=== PATIENT | male | born 1965 | race Caucasian/White ===

== ENCOUNTER 2020-12-15 11:57 | Outpatient (REF) | payer OTHER, SELFPAY ==
[2020-12-15 12:28] LABS: MANUAL DIFF FLAG NO
[2020-12-15 12:36] LABS: Basophils Absolute Auto 0.1 X10*3/uL (0.0-0.2); Basophils Percent Auto 0.8 % (0-2); Eosinophils Absolute Auto 0.1 X10*3/uL (0.0-0.4); Eosinophils Percent Auto 2.2 % (0-4); Hematocrit 45.4 % (42-52); Hemoglobin 14.9 g/dl (14.0-18.0); Imm Gran Abs Auto 0.05 X10*3/uL (0.00-0.03); Imm Gran Pct Auto 0.8 % (0.0-0.4); Lymphocytes Absolute Auto 1.8 X10*3/uL (1.2-4.9); Mean Corpuscular HGB Conc 32.8 g/dl (31.0-36.0); Mean Corpuscular Hemoglobin 27.9 pg (27.0-33.0); Mean Platelet Volume 9.5 fL (9.4-12.4); Monocytes Absolute Auto 0.8 X10*3/uL (0.1-1.2); Monocytes Percent Auto 11.7 % (2-11); Neutrophils Absolute Auto 3.7 X10*3/uL (2.0-8.3); Neutrophils Percent Auto 57.5 % (45-73); Platelet Count 307 X10*3/uL (160-400); Red Blood Count 5.34 X10*6/uL (4.60-5.80); Red Cell Distribution Width 13.9 % (11.0-16.0); White Blood Count 6.5 X10*3/uL (4.8-10.8)
[2020-12-15 12:51] LABS: Glucose Urine UA NEG (NEG); Leukocyte Esterase Urine NEG (NEG); Nitrite Urine NEG (NEG); PH 5.5 (5.0-8.0); Specific Gravity - Urine >= 1.030 (1.005-1.025); Urine Blood NEG (NEG); Urine Ketones NEG (NEG); Urine Protein NEG (NEG-TRACE)
[2020-12-15 12:55] LABS: Appearance Urine HAZY; Color Urine YELLOW
[2020-12-15 13:21] LABS: Alanine Aminotransferase 30 U/L (0-40); Albumin Level 4.3 g/dL (3.5-5.0); Alkaline Phosphatase 74 U/L (39-117); Anion Gap 11 (12-20); Aspartate Amino Transferase 18 U/L (5-37); Bilirubin Total 0.9 mg/dL (0.0-1.0); Blood Urea Nitrogen 16 mg/dL (9-16); Carbon Dioxide 27 mmol/L (22-29); Chloride 105 mmol/L (96-108); Cholesterol 219 mg/dL; Estimated Glomerular Filt Rate > 60; Glucose Fasting 92 mg/dL (60-99); HDL Cholesterol 50 mg/dL; LDL Cholesterol Calculated 132 mg/dl; Potassium 4.2 mmol/L (3.3-5.1); Sodium 139 mmol/L (135-145); Total Protein 7.4 g/dL (6.5-8.0); Triglycerides 189 mg/dL
[2020-12-15 13:41] LABS: Estimated Average Glucose 114 mg/dL; Hemoglobin A1C 150.9873 umol/L; Hemoglobin A1c % 5.6 %
[2020-12-15 13:42] LABS: Prostate Specific Antigen 3.21 ng/mL (<0.05-4.0); TSH reflex Free T4 1.79 uIU/mL (0.32-4.0)
== END 2020-12-15 11:58 | disposition home or self-care (01) ==
LOC: HO.LAB 11:57
PROVIDERS: PCP Internal Medicine; Visit Provider Internal Medicine
DX: Z00.00 Encounter for general adult medical examination without abnormal findings (principal); R68.2 Dry mouth, unspecified; K21.9 Gastro-esophageal reflux disease without esophagitis; K59.00 Constipation, unspecified; E66.9 Obesity, unspecified; R03.0 Elevated blood-pressure reading, without diagnosis of hypertension; R35.0 Frequency of micturition; Z20.822 Contact with and (suspected) exposure to COVID-19; Z12.5 Encounter for screening for malignant neoplasm of prostate
CPT/HCPCS: 36415; 80053; 80061; 81003; 83036; 84153; 84443; 85025; U0003; U0005

== ENCOUNTER 2021-04-08 07:24 | Emergency (ER) | payer OTHER, SELFPAY ==
[2021-04-08 07:54] VITALS: BP 140/85; PULSE 88; RESP 18; TEMP 36.7; O2SAT 98; BMI 25.0
--- NOTE | 2021-04-08 08:56 | ED_ITS ---
HPI - Skin/Abscess/Foreign Bdy General Chief complaint: Skin/Abscess/Foreign Body Stated complaint: BOIL Time Seen by Provider: 04/08/21 08:30 Source: patient and family ( mother at bedside) Mode of arrival: ambulatory Limitations: no limitations History of Present Illness complaint: abscess/boil Onset (ago): day(s) ( few days worse today) Location: RUE ( left axillary) Severity: moderate Quality: aching, sharp and constant Pain Consistency: constant Relieving factors: none Exacerbating factors: palpation and movement ( of the left arm /shoulder) Context: none Associated symptoms: shortness of breath Treatments prior to arrival: none Related Data Home Medications Medication Instructions Recorded Confirmed calcium polycarbophil 625 mg tablet 1,250 mg PO BID 08/06/20 03/16/21 linaclotide 145 mcg capsule 145 mcg PO QAM 08/06/20 03/16/21 Previous Rx's Medication Instructions Recorded pantoprazole 40 mg tablet,delayed 40 mg PO DAILY 90 Days #90 tab 12/14/20 release acetaminophen [Tylenol Extra 1,000 mg PO QID PRN #14 tab 04/08/21 Strength] cephalexin 500 mg PO BID 10 Days #20 cap 04/08/21 doxycycline monohydrate 100 mg PO BID 10 Days #20 cap 04/08/21 ibuprofen 800 mg PO Q8H PRN #14 tab 04/08/21 oxycodone 5 mg PO BID PRN #10 tab 04/08/21 Allergies Allergy/AdvReac Type Severity Reaction Status Date / Time penicillin G [PENICILLIN G] Allergy Unknown UNKNOWN Verified 03/16/21 17:16 penicillin V Allergy Unknown unknown Verified 03/16/21 17:16 Review of Systems Review of Systems: Constitutional : No Fever, No Chills, Cardiovascular : No Chest Pain, No SOB Respiratory : No Dyspnea Gastrointestinal : No abdominal pain Musculoskeletal : No Joint Swelling Skin : positive cellulitis /skin abscess, No skin laceration, No Foreign bodies, No rash Neuro : No Weakness, No Numbness/tingling Psych : No SI/HI/thoughts of self injury Yes all other systems are reviewed and are negative [facility] Past Medical History Attestation statement: The following information was validated with the patient. Medical History Dry mouth Elevated blood pressure reading Elevated PSA Exposure to COVID-19 virus Obesity (BMI 30-39.9) Pure hypercholesterolemia Urinary frequency Surgical History Hx of colonoscopy Family History Family History Father Overdose of drug Mother HTN (hypertension) Anxiety Family/Other Prostate cancer Social History Social History Household Members: Family Household Members Other:: mother Housing: Apartment Alcohol intake: current Alcohol intake frequency: holidays/special occasions only Patient Tobacco Use Status: Never used Tobacco Second Hand Smoke Exposure: Yes Advance Directives: No Advance Directives Information Provided: No service: No Current occupational status: disabled Physical Exam Vital Signs: Vital Signs: Last Vital Signs Temp 98.1 F 04/08/21 07:54 Pulse 88 04/08/21 07:54 Resp 18 04/08/21 07:54 BP 140/85 H 04/08/21 07:54 Pulse Ox 98 04/08/21 07:54 Body Mass Index 25.0 vital signs have been reviewed as normal and appeared to be correct. Blood pressure normal. Heart rate normal. Respiration rate normal. Temperature normal. Oxygen saturation normal. Appearance: Alert. Oriented X3. No acute distress. Head: Normal external exam. Normocephalic. Atraumatic. Eyes: PERRLA. EOMI. Conjunctiva and sclera normal. Eyelids normal. ENT: Pharynx normal. Uvula midline. Moist mucous membranes. Neck: Normal inspection. Neck supple. FROM. No adenopathy. No meningeal signs. CVS: Normal heart rate and rhythm. Respiratory: No respiratory distress. Painless inspiration. Back: Full range of motion noted. Skin: Skin warm and dry. Normal skin color. Normal skin turgor. patient with small abscess to left axillary with mild surrounding erythema / fluctuance. No induration /streaking or foreign bodies noted.No rashes/lesions/lacerations noted. Extremities: Extremities exhibit normal range of motion. Extremities nontender. Neuro: Oriented X 3. No motor deficit. No sensory deficit. Reflexes normal. Normal steady gait. No focal neuro deficits noted. Vascular: + radial pulses. Normal cap refill. No cyanosis noted to upper extremity nails. Course Course Course Narrative: Patient now status post I&D of abscess to left axillary. No packing placed. Patient tolerated procedure well. No complications. Will DC home antibiotics and symptomatic treatment only instructions to return if any new or worsening symptoms to follow up with primary care provider. Patient understands agrees with this plan. Procedures Abscess I/D Site: upper extremity ( Left axillary) Side (if applicable): left Local Anesthetic: lidocaine 1% Amount of anesthesia used (mL): 5 Technique: needle aspiration Amount of fluid expressed (mL): 4 Sent for culture/gram staining?: No Irrigation: Yes Packing used?: none Complications: other ( no complications) MDM - Skin/Abscess/Foreign Bdy Medical Records Attestation: I reviewed the patient's medical records. Discharge Plan Discharge Clinical Impression: Cellulitis, Abscess of skin or subcutaneous tissue Patient Disposition: Home, Self-Care Instructions: Cellulitis (ED), Abscess (ED) Prescriptions: New ibuprofen 800 mg tablet 800 mg PO Q8H PRN (Reason: pain) Qty: 14 RF: 0 acetaminophen [Tylenol Extra Strength] 500 mg tablet 1,000 mg PO QID PRN (Reason: fever or pain) Qty: 14 RF: 0 doxycycline monohydrate 100 mg capsule 100 mg PO BID 10 Days Qty: 20 RF: 0 cephalexin 500 mg capsule 500 mg PO BID 10 Days Qty: 20 RF: 0 oxycodone 5 mg tablet 5 mg PO BID PRN (Reason: pain) Qty: 10 RF: 0 No Action pantoprazole 40 mg tablet,delayed release (DR/EC) 40 mg PO DAILY 90 Days Qty: 90 RF: 1 Linzess 145 mcg capsule 145 mcg PO QAM RF: 0 calcium polycarbophil [Fiber Laxative (ca polycarbo)] 625 mg tablet 1,250 mg PO BID RF: 0 Referrals: Physician,Unknown [Primary Care Provider] - 2 days (your pcp) Print Language: Mohawk
[2021-04-08] MEDS: Ibuprofen 800 MG TABLET PO (09:06)
[2021-04-08] MEDS: oxyCODONE HCl Immed Release 5 MG TABLET PO (09:06)
[2021-04-08] MEDS: cephALEXin 500 MG CAPSULE PO (09:06)
[2021-04-08] MEDS: Lidocaine HCl 1 % MPF 5 ML VIAL SUBCUT (09:07)
== END 2021-04-08 09:51 | disposition home or self-care (01) ==
PROVIDERS: Emergency Provider Emergency Medicine Emergency Medical Services
DX: L02.412 Cutaneous abscess of left axilla (principal); L03.112 Cellulitis of left axilla
CPT/HCPCS: 10160; 99283; 99284

== ENCOUNTER 2021-06-02 07:18 | Outpatient (REF) | payer OTHER, SELFPAY ==
[2021-06-02 09:02] LABS: MANUAL DIFF FLAG NO
[2021-06-02 09:06] LABS: Basophils Absolute Auto 0.1 X10*3/uL (0.0-0.2); Eosinophils Absolute Auto 0.1 X10*3/uL (0.0-0.4); Eosinophils Percent Auto 1.8 % (0-4); Hematocrit 46.2 % (42-52); Imm Gran Abs Auto 0.03 X10*3/uL (0.00-0.03); Imm Gran Pct Auto 0.5 % (0.0-0.4); Lymphocytes Absolute Auto 1.7 X10*3/uL (1.2-4.9); Mean Corpuscular HGB Conc 32.5 g/dl (31.0-36.0); Mean Corpuscular Hemoglobin 27.5 pg (27.0-33.0); Mean Corpuscular Volume 84.6 fL (80-98); Monocytes Absolute Auto 0.7 X10*3/uL (0.1-1.2); Monocytes Percent Auto 11.5 % (2-11); Neutrophils Absolute Auto 3.7 X10*3/uL (2.0-8.3); Neutrophils Percent Auto 58.2 % (45-73); Platelet Count 335 X10*3/uL (160-400); Red Blood Count 5.46 X10*6/uL (4.60-5.80); Red Cell Distribution Width 14.1 % (11.0-16.0); White Blood Count 6.3 X10*3/uL (4.8-10.8)
[2021-06-02 09:45] LABS: Alanine Aminotransferase 23 U/L (0-40); Albumin Level 4.1 g/dL (3.5-5.0); Alkaline Phosphatase 78 U/L (39-117); Anion Gap 12 (12-20); Aspartate Amino Transferase 18 U/L (5-37); Bilirubin Total 0.8 mg/dL (0.0-1.0); Blood Urea Nitrogen 13 mg/dL (9-16); Calcium 8.8 mg/dL (8.4-10.2); Carbon Dioxide 24 mmol/L (22-29); Chloride 107 mmol/L (96-108); Estimated Glomerular Filt Rate > 60; Glucose Random 103 mg/dL (60-115); Sodium 139 mmol/L (135-145); Total Protein 7.3 g/dL (6.5-8.0)
== END 2021-06-02 07:19 | disposition home or self-care (01) ==
LOC: HO.LAB 07:18
PROVIDERS: PCP Internal Medicine; Visit Provider Nurse Practitioner Family
DX: R21 Rash and other nonspecific skin eruption (principal)
CPT/HCPCS: 36415; 80053; 85025

== ENCOUNTER 2021-11-03 09:57 | Outpatient (REF) | payer OTHER, SELFPAY ==
[2021-11-03 10:20] LABS: MANUAL DIFF FLAG NO
[2021-11-03 10:38] LABS: Basophils Absolute Auto 0.1 X10*3/uL (0.0-0.2); Basophils Percent Auto 0.7 % (0-2); Eosinophils Absolute Auto 0.1 X10*3/uL (0.0-0.4); Eosinophils Percent Auto 1.4 % (0-4); Hematocrit 48.1 % (42.0-52.0); Hemoglobin 15.7 g/dl (14.0-18.0); Imm Gran Abs Auto 0.07 X10*3/uL (0.00-0.03); Lymphocytes Absolute Auto 1.5 X10*3/uL (1.2-4.9); Lymphocytes Percent Auto 21.9 % (20-40); Mean Corpuscular HGB Conc 32.6 g/dl (31.0-36.0); Mean Corpuscular Hemoglobin 27.6 pg (27.0-33.0); Mean Corpuscular Volume 84.5 fL (80.0-98.0); Mean Platelet Volume 9.7 fL (9.4-12.4); Monocytes Absolute Auto 0.8 X10*3/uL (0.1-1.2); Neutrophils Absolute Auto 4.5 x10*3/uL (2.0-8.3); Platelet Count 330 X10*3/uL (160-400); Red Blood Count 5.69 X10*6/uL (4.60-5.80); Red Cell Distribution Width 13.6 % (11.0-16.0)
[2021-11-03 11:07] LABS: Alanine Aminotransferase 34 U/L (0-40); Albumin Level 4.4 g/dL (3.5-5.0); Alkaline Phosphatase 80 U/L (39-117); Anion Gap 14 (12-20); Aspartate Amino Transferase 22 U/L (5-37); Bilirubin Total 0.9 mg/dL (0.0-1.0); Blood Urea Nitrogen 15 mg/dL (9-16); Calcium 9.7 mg/dL (8.4-10.2); Carbon Dioxide 25 mmol/L (22-29); Chloride 105 mmol/L (96-108); Cholesterol 242 mg/dL; Estimated Glomerular Filt Rate 60; Glucose Fasting 98 mg/dL (60-99); HDL Cholesterol 42 mg/dL; LDL Cholesterol Calculated 160 mg/dl; Potassium 4.4 mmol/L (3.3-5.1); Sodium 140 mmol/L (135-145); Total Protein 7.9 g/dL (6.5-8.0); Triglycerides 204 mg/dL
== END 2021-11-03 09:58 | disposition home or self-care (01) ==
LOC: HO.LAB 09:57
PROVIDERS: PCP Internal Medicine; Visit Provider Internal Medicine
DX: I10 Essential (primary) hypertension (principal); E78.00 Pure hypercholesterolemia, unspecified
CPT/HCPCS: 36415; 80053; 80061; 85025

== ENCOUNTER 2025-07-14 12:20 | Outpatient (AMB) | payer OTHER, SELFPAY ==
[2025-07-14 13:13] VITALS: BP 132/100; PULSE 73; RESP 18; O2SAT 97; BMI 33.0
--- NOTE | 2025-07-14 13:13 | A.OFFPC_ITS ---
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 Accompanied by: Self / Same As Patient Allergies penicillin G (PENICILLIN G) Allergy (Unknown, Verified 07/14/25 13:42) UNKNOWN penicillin V Allergy (Unknown, Verified 07/14/25 13:42) unknown Medication List - Last Reconciled 07/14/25 by Tee Sexton MD calcium polycarbophil (Fiber Laxative (calcium polycarbophil)) 1,250 mg PO BID ibuprofen 800 mg PO Q8H PRN linaclotide (Linzess) 145 mcg PO QAM 90 days pantoprazole 40 mg PO DAILY 90 days triamcinolone acetonide 0.1% 1 appl topical BID 7 days Tobacco use date assessed: 07/14/25 Dental Screening Dental Screen Date: 07/14/25 Did you have a dental visit in the last 12 months?: No Did you have a dental problem in the last 6 months where you did not have access to dental care?: No Was dental information given to patient?: Patient has dentist HPI med. review HPI Details Patient comes in today for his follow up visit - he has not been back since 06/14/2022, over 3 years ago States that he is concerned that he may have suffered some injury to (maybe even broke) both of his forearms last year Recalls feeling something snap/ pop in both of his forearms then when he was trying to force open some heavy windows, and that he started feeling severe pain in both of his forearms since Notes that his forearms felt weaker than usual for a while and he has some slight difficulty even holding a coffee mug then, especially with his left hand States that he did not go to get his forearms checked out and evaluated and that his forearm symptoms were bothering him for a few weeks before gradually improving although he currently still feels that his forearms and hands are slightly weaker than usual and has never returned back to normal States that he feels okay otherwise He denies any headaches or dizziness Denies any chest oains, no SOB No nausea/vomiting, no abdominal pain No change in bowel habits noted Needs a couple of his Rx refilled - states that he has been out of his medications for almost a year now [facility] Medical History (Updated 07/17/25 @ 06:45 by Tee Sexton MD) Essential hypertension Rash Pure hypercholesterolemia Elevated PSA Obesity (BMI 30-39.9) Exposure to COVID-19 virus Elevated blood pressure reading Urinary frequency Dry mouth Surgical History Hx of colonoscopy Family History Father Overdose of drug Substance use disorder Mother HTN (hypertension) Anxiety Substance use disorder Mental health disorder Family/Other Prostate cancer Social History Household Members: Family Household Members Other:: mother Housing: Apartment Alcohol intake: current Alcohol intake frequency: holidays/special occasions only Patient Tobacco Use Status: Never used Tobacco e-Cigarette/Vaping Use: Never Used Second Hand Smoke Exposure: Yes Substance Use Type: Marijuana service: No Current occupational status: disabled Cognitive needs: No Hearing needs: No Vision needs: No Questionnaire PHQ-9 Over the last 2 weeks, how often have you been bothered by any of the following problems? 1. Little interest or pleasure in doing things: several days 2. Feeling down, depressed, or hopeless: several days 3. Trouble falling or staying asleep, or sleeping too much: more than half the days 4. Feeling tired or having little energy: more than half the days 5. Poor appetite or overeating: not at all 6. Feeling bad about yourself - or that you are a failure or have let yourself or your family down: more than half the days 7. Trouble concentrating on things, such as reading the newspaper or watching television: not at all 8. Moving or speaking so slowly that other people could have noticed. Or the opposite - being so fidgety or restless that you have been moving around a lot more than usual: not at all 9. Thoughts that you would be better off or of hurting yourself in some way: not at all Total score: 8 Depression Screening Interpretation: Positive Depression Screening Follow-up: Follow-up Visit Requested Depression Screening Done: Yes 89777 - PHQ-9 Billing: Yes Source: Developed by Drs. Tigre Ding, Kristi Ruiz, Pramod Moeller and colleagues, with an educational bravo from [employer]. Thrive Questionnaire Date Thrive assessed: 07/16/25 I am a: Patient What is your living situation today?: I have a steady place to live Within the past 12 months, did the food you bought not last and you didn't have the money to get more?: Never true Within the past 12 months, did you worry whether your food would run out before you got money to buy more?: Never true Do you have trouble paying for medicines?: No Do you have trouble getting transportation to medical appointments?: Yes Do you have trouble paying your heating and electricity bill?: No Do you have trouble taking care of your child, family member or friend?: No Do you have trouble with day-to-day activities such as bathing, preparing meals, shopping, managing finances, etc.?: No Are you currently unemployed and looking for a job?: No Are you interested in more education?: No Please select the resources that you would like help with: None Currently or been in a relationship where the following occur: No concerns reported THRIVE Score: 1 AUDIT C Alcohol Use Questionnaire (AUDIT-C) 1. How often do you have a drink containing alcohol?: Monthly or less 2. How many drinks containing alcohol do you have on a typical day when you are drinking?: 1 or 2 3. How often do you have six or more drinks on one occasion?: Never Total Score: 1 Score Reviewed/Action Taken: Yes PAUL-7 AMB Questionnaire PAUL-7 Date PAUL - 7 assessed: 01/23/22 Feeling nervous, anxious, or on edge: 2 = More than half the days Not being able to stop or control worryin = More than half the days Worrying too much about different things: 2 = More than half the days Trouble relaxin = More than half the days Being so restless that it is hard to sit still: 2 = More than half the days Becoming easily annoyed or irritable: 2 = More than half the days Feeling afraid as if something awful might happen: 2 = More than half the days Total PAUL-7 score (0-4 normal; 5-9 mild; 10-14 moderate; 15-21 severe): 14 Source: Developed by Drs. Tigre Ding, Kristi Ruiz, Pramod Moeller and colleagues, with an educational bravo from [employer]. Review of Systems Const Denies chills, Reports fatigue, Denies fever(s) and Denies headache(s) ENT Denies dysphagia, Denies dizziness, Denies ear discharge, Denies otalgia, Denies headache(s), Denies neck pain, Denies odynophagia and Denies sore throat Card Denies chest pain, Denies irregular heart rhythm, Denies palpitations and Denies dyspnea Resp Denies chest congestion, Denies cough and Denies dyspnea GI Denies abdominal pain, Reports constipation, Denies dysphagia, Denies heartburn, Denies diarrhea, Denies nausea, Denies odynophagia and Denies vomiting Denies difficulty urinating, Denies dysuria, Denies nocturia and Reports urinary frequency Musc Denies back pain, Reports muscle weakness (in both forearm, slightly worse in the left side) and Denies neck pain Skin/Breast Denies rash Neuro Denies dizziness and Denies headache(s) Psych Denies depression Endo Reports fatigue and Denies palpitations Physical exam (Primary Care) Vital Signs: Last Vital Signs Pulse 73 07/14/25 13:13 Resp 18 07/14/25 13:13 BP 132/100 H 07/14/25 13:13 Pulse Ox 97 07/14/25 13:13 Oxygen Delivery Method Room Air 07/14/25 13:13 BMI result Body Mass Index 33.0 Tobacco/Smoking Status: Tobacco use Status Tobacco use date assessed 07/14/25 07/14/25 13:27 Patient Tobacco Use Status Never used Tobacco 07/14/25 13:15 e-Cigarette/Vaping Use Never Used 07/14/25 13:15 PHQ-9: PHQ-9 Score PHQ-9: Total score 8 07/14/25 13:43 Depression Screening Interpretation: Positive Depression Screening Follow-up: Follow-up Visit Requested Thrive Assessment: Date of Thrive Assessment Date Thrive assessed 06/14/22 07/14/25 13:15 Currently or been in a relationship where the following occur: No concerns reported Const General: no acute distress and alert HENMT Ears: TM abnormal obstructed by cerumen bilateral and unable to visualize TM bilaterally Throat: Yes posterior oropharynx normal and Yes tonsils normal (no TP congestion noted) Neck Neck: Yes supple and No lymphadenopathy Thyroid: Thyroid normal Chest Other: (+) tenderness on palpation over the left rib cage area between the left lateral and anterior cervical line Resp Auscultation: clear to auscultation bilaterally, no rales and no wheezes Cardio Rate: regular rate Rhythm: regular rhythm Heart sounds: no murmurs GI Palpation (GI): Soft to palpation and nontender Auscultation: normal bowel sounds General: Yes no CVA tenderness Back/Spine/Pelvis Back: no CVA tenderness Thoracic/Lumbar Spine: No lumbar spinal tenderness Skin Rashes: no rashes Extrem General: Yes no clubbing, cyanosis or edema Coding Level of Care Code Est Pt Level 4 (92449) Diagnoses Pain in both forearms M79.632; M79.631 Essential hypertension I10 Pure hypercholesterolemia E78.00 Gastroesophageal reflux disease without esophagitis K21.9 Esophagitis presence: without esophagitis Constipation, unspecified constipation type K59.00 Constipation type: unspecified constipation type Impacted cerumen of both ears H61.23 Elevated PSA R97.20 Obesity (BMI 30-39.9) E66.9 Additional Codes PHQ-9 - 22817 - PHQ-9 Billing: Yes ([id number]) Assessment & Plan Assessment & Plan (1) Pain in both forearms: Code(s): M79.632 - Pain in left forearm; M79.631 - Pain in right forearm Category: Medical Plan: Will send patient for x-rays of both forearms MORE for further evaluation Advised that if his x-rays come back normal, then he will likely benefit from physical therapy (2) Essential hypertension: Code(s): I10 - Essential (primary) hypertension Category: Medical Plan: Reinforced low-sodium diet - goal is systolic BP of 120 mm or less We will go ahead and start patient on Lisinopril 5 mg QD He is instructed on monitoring his blood pressure daily/regularly (3) Pure hypercholesterolemia: Code(s): E78.00 - Pure hypercholesterolemia, unspecified Category: Medical Plan: Have reminded patient that his cholesterol levels were still elevated when they were last checked back in October 2021, with his total cholesterol still at 242 mg/dl and LDL cholesterol at 160 mg/dl Reinforce low-cholesterol diet Will have patient recheck his labs and fasting lipids in 3 months for follow-up (4) GERD (gastroesophageal reflux disease): Code(s): K21.9 - Gastro-esophageal reflux disease without esophagitis Category: Medical Qualifiers: Esophagitis presence: without esophagitis Qualified Code(s): K21.9 - Gastro-esophageal reflux disease without esophagitis Plan: Dietary restrictions reinforced Will start patient back on Pantoprazole 40 mg QD - states that he has been out of his Rx for about a year now (5) Constipation: Code(s): K59.00 - Constipation, unspecified Category: Medical Qualifiers: Constipation type: unspecified constipation type Qualified Code(s): K59.00 - Constipation, unspecified Plan: Reinforced increase oral fluids and dietary fiber intake No start patient back as well on Linzess 145 mcg QD He is instructed this well to continue on his Fiber Laxative 1250 mg BID (6) Impacted cerumen of both ears: Code(s): H61.23 - Impacted cerumen, bilateral Category: Medical Plan: Will start patient on Debrox eardrops 5 drops into each ear BID for at least 7 days He is also instructed on how to self irrigate his ears while in the shower daily, if this does not help, then he may need to have his ears irrigated/flushed in the office to help clear up his impacted cerumen (7) Elevated PSA: Code(s): R97.20 - Elevated prostate specific antigen [PSA] Category: Medical Plan: Have reminded patient that his PSA level was elevated in the past and the last time it was checked back in December 2020, it was still at 3.21 Will recheck his PSA in 3 months and if it is still elevated, will need to refer him back to urology for further evaluation and management (8) Obesity (BMI 30-39.9): Code(s): E66.9 - Obesity, unspecified Category: Medical Plan: Reinforced diet/exercise as tolerated/lose weight Plan To return in 3 months for his annual physical examination Orders: Orders Lipid Panel 3 Months E78.00 - Pure hypercholesterolemia, unspecified, Z00.00 - Encounter for general adult medical examination without abnormal findings Vitamin D 25-OH Total 3 Months E55.9 - Vitamin D deficiency, unspecified, Z00.00 - Encounter for general adult medical examination without abnormal findings Prostate Specific Antigen 3 Months N40.0 - Benign prostatic hyperplasia without lower urinary tract symptoms, R97.20 - Elevated prostate specific antigen [PSA] XR Forearm Blade 2V 07/14/25 M79.631 - Pain in right forearm, M79.632 - Pain in left forearm Complete Blood Count Auto Diff 3 Months D64.9 - Anemia, unspecified, Z00.00 - Encounter for general adult medical examination without abnormal findings Comprehensive Rice. Panel Fast 3 Months E78.00 - Pure hypercholesterolemia, unspecified, Z00.00 - Encounter for general adult medical examination without abnormal findings TSH reflex Free T4 3 Months E78.00 - Pure hypercholesterolemia, unspecified, Z00.00 - Encounter for general adult medical examination without abnormal findings UA CC w/rflx Micro + Cult 3 Months R30.0 - Dysuria, Z00.00 - Encounter for general adult medical examination without abnormal findings Hemoglobin A1c 3 Months E11.9 - Type 2 diabetes mellitus without complications, Z00.00 - Encounter for general adult medical examination without abnormal findings Medications: New carbamide peroxide 6.5% (Debrox) 5 drps otic (ears) BID 15 mL 0RF 7 days lisinopril 5 mg PO DAILY 30 tabs 3RF 30 days I10 - Essential (primary) hypertension Refilled linaclotide (Linzess) 145 mcg PO QAM 90 caps 1RF 90 days K59.00 - Constipation, unspecified pantoprazole 40 mg PO DAILY 90 tabs 1RF 90 days K21.9 - Gastro-esophageal reflux disease without esophagitis
--- OUTSIDE RECORDS SUMMARY | 2025-07-14 15:14 | XMS_ITS | Clinical Summary ---
Author Organization [facility] Address [address] [place] [address] [address] [place] [address] Care Team Providers Care Page Designer Name Role Phone Unavailable Primary Care Provider Unavailabl e Allergies Active Allergy Reactions Criticality Noted Date Comments Penicillin G Hives 11/10/2022 Penicillins 08/28/2013 Other reaction(s): Unknown Medications pantoprazole (ProtoNix) 40 MG EC tablet Take 40 mg by mouth in the morning. 08/01/2023 Active polyethylene glycol, PEG, 3350 (MiraLax) 17 GM/SCOOP powder take (17G) by oral route every day mixed with 8 oz. water, juice, soda, coffee or tea Active Active Problems Problem Noted Date Diagnosed Date Periodontal disease 11/14/2023 Social History Tobacco Use Types Packs/Day Years Used Date Smoking Tobacco: Former Cigarettes 0.3 0.5 Passive Smoke Exposure: Never Smokeless Tobacco: Former Tobacco Cessation:Counseling Given: Not Answered Alcohol Use Standard Drinks/Week Comments Not Currently 0 (1 standard drink = 0.6 oz pur e alcohol) Sex and Gender Information Value Date Recorded Sex Assigned at Male 08/07/2022 10:14 AM EDT Legal Sex Male 10:14 AM EDT Gender Identity Male 08/07/2022 10:14 AM EDT Sexual Orientation Straight 08/07/2022 10 :14 AM EDT Last Filed Vital Signs Vital Sign Reading Time Taken Comments Blood Pressure 158/90 11/14/2023 1:39 PM EST Pulse 68 11/14/2023 9:11 AM EST Temperature - - Respiratory Rate - - Oxygen Saturation - - Inhaled Oxygen Concentration - - Weight - - Height - - Body Mass Index - - Plan of Treatment Health Maintenance Due Date Last Done Comments CT Colonography 1965 Colonoscopy 1965 Colorectal Cancer Screening 1965 Dental Oral Exam 1965 Dental Prophylaxis 1965 Depression Screening 1965 FIT DNA/Cologuard 1965 FIT 1965 FOBT 1965 HIV Screening 1965 Lipid Panel 1965 SDOH Screening 1965 Sigmoidoscopy 1965 Disability Screening 1965 Alcohol/Substance Use Screening 1977 Hepatitis C Screening 1983 Hepatitis B Vaccines (1 of 3 - 19+ 3-dose series) 1984 Pneumococcal Vaccine: 50+ Years (1 of 1 - PCV) 2015 Zoster Vaccines (1 of 2) 2015 Tobacco Screening 11/14/2024 11/14/2023 Dental X-Ray: Bitewings 11/15/2024 11/14/2023 COVID-19 Vaccine ( season) 2025 02/28/2022, 03/02/2021, 02/02/2021 Influenza Vaccine (#1) 2025 , 12/14/2020, 10/22/2019, Additional history exists Dental X-Ray: Full Mouth 11/11/2025 11/10/2022 DTaP/Tdap/Td Vaccines (2 - Td or Tdap) 03/28/2029 03/28/2019, 11/23/2016 RSV Patients and Patients Aged 60 years or older (1 - 1-dose 75+ series) 2040 HIB Vaccines Aged Out No longer eligi ble based on patient's age to complete this topic HPV Vaccines Aged Out No longer eligi ble based on patient's age to complete this topic Hepatitis A Vaccines Aged Out No long er eligible based on patient's age to complete this topic IPV Vaccines Aged Out No longer eligi ble based on patient's age to complete this topic Meningococcal B Vaccine Aged Out No l onger eligible based on patient's age to complete this topic Meningococcal Vaccine Aged Out No hadley shaheen eligible based on patient's age to complete this topic RSV under 20 months Aged Out No longe r eligible based on patient's age to complete this topic Rotavirus Vaccines Aged Out No longer eligible based on patient's age to complete this topic Procedures Procedure Name Priority Date/Time Associated Diagnosis Comments BITEWING - SINGLE RADIOGRAPHIC IMAGE Routine 11/14/2023 9:00 AM EST Symptomatic irreversible pulpitis PANORAMIC RADIOGRAPHIC IMAGE Routine 11/10/2022 10:00 AM EST from Last 3 Months or Most Recently Relevant to Health Maintenance Insurance [facility] MEDICAID STAND ADULT
== END 2025-07-14 13:56 | disposition home or self-care (01) ==
PROVIDERS: PCP Internal Medicine; Visit Provider Internal Medicine
DX: M79.632 Pain in left forearm (principal); M79.631 Pain in right forearm; I10 Essential (primary) hypertension; E78.00 Pure hypercholesterolemia, unspecified; K21.9 Gastro-esophageal reflux disease without esophagitis; K59.00 Constipation, unspecified; H61.23 Impacted cerumen, bilateral; R97.20 Elevated prostate specific antigen [PSA]; E66.9 Obesity, unspecified

== ENCOUNTER 2025-07-14 12:20 | Outpatient (REF) | payer OTHER, SELFPAY ==
--- NOTE | ~2025-07-14 | XR_ITS ---
Examination: 2 view x-ray of the right forearm TECHNIQUE: AP and lateral view upper extremity INDICATION: Left forearm pain Prior: None FINDINGS: Anterior fat pad is visible at the elbow joint without displacement. Posterior fat pad is not visible. Small punctate ossification is visible in the soft tissues distal to ulna. There is a corticated bony density at the proximal end of the radial tuberosity. XR/XR Forearm Blade 2V IMPRESSION: Possible avulsion fracture involving radial tuberosity is probably old. Electronically signed by: Efe Padilla MD 07/14/2025 02:37 PM EDT
== END 2025-07-14 12:21 | disposition home or self-care (01) ==
LOC: HO.XRAY 12:20
PROVIDERS: PCP Internal Medicine; Visit Provider Internal Medicine
DX: M79.632 Pain in left forearm (principal); M79.631 Pain in right forearm; I10 Essential (primary) hypertension; E78.00 Pure hypercholesterolemia, unspecified; K21.9 Gastro-esophageal reflux disease without esophagitis; K59.00 Constipation, unspecified; H61.23 Impacted cerumen, bilateral; R97.20 Elevated prostate specific antigen [PSA]; E66.9 Obesity, unspecified; Z68.33 Body mass index [BMI] 33.0-33.9, adult; Z71.3 Dietary counseling and surveillance
CPT/HCPCS: 73090; 96127; 99212

== ENCOUNTER → 2025-07-14 14:15 | Outpatient (BNV) | payer OTHER, SELFPAY | PROVIDERS: PCP Internal Medicine; Visit Provider Radiology Diagnostic Radiology | DX: M79.632 Pain in left forearm (principal) | CPT/HCPCS: 73090 ==

== ENCOUNTER 2025-10-06 16:10 | Emergency (ER) | payer OTHER, SELFPAY ==
--- NOTE | ~2025-10-06 | CT_ITS ---
CLINICAL HISTORY: CP, SOB, elevated d-dimer CT angiography chest with contrast. 3D Postprocessing. Comparison: CR - XR CHEST 2V - 10/06/25 17:51 EST Findings: The heart size is normal. RV/LV ratio is normal. Unremarkable thoracic aorta and great vessels. No aneurysm. No pulmonary artery filling defects. The visualized thyroid and mediastinum are unremarkable. The lungs are clear. The upper abdomen is unremarkable. No acute fractures. IMPRESSION: 1. No pulmonary emboli. No acute aortic syndrome. Lungs are clear. This document has been electronically signed by: Bartolome Felix MD on 10/06/2025 21:09:54
--- NOTE | ~2025-10-06 | XR_ITS ---
CLINICAL HISTORY: chest pain 2 view chest x-ray. Comparison: None Findings: No consolidation or effusion. Cardiac and mediastinal contours are unremarkable. Bones unremarkable. Impression: 1. No acute pulmonary disease. This document has been electronically signed by: Khari Sanders MD on 10/06/2025 18:14:46
--- NOTE | 2025-10-06 16:14 | ECG_ITS ---
Test Reason : chest pain Blood Pressure : */* mmHG Vent. Rate : 99 BPM Atrial Rate : 99 BPM P-R Int : 152 ms QRS Dur : 96 ms QT Int : 358 ms P-R-T Axes : 19 -45 17 degrees QTcB Int : 459 ms Normal sinus rhythm Left anterior fascicular block Moderate voltage criteria for LVH, may be normal variant ( R in aVL , Dane product ) Abnormal ECG When compared with ECG of 28-Jul-2008 21:31, No significant change was found Referred By: Generic ED Physician Electronically Signed By: DIAMANTE LIMA
[2025-10-06 16:15] VITALS: BP 149/88; PULSE 108; O2SAT 98
[2025-10-06 16:42] VITALS: BP 140/76; PULSE 102; RESP 20; TEMP 36.6; O2SAT 97; BMI 32.5
--- NOTE | 2025-10-06 16:48 | ED_ITS ---
HPI - Chest Pain General Chief Complaint: Chest Pain Stated Complaint: Chest pain10/10 after substance use last night Time Seen by Provider: 10/06/25 16:48 History of Present Illness ED Provider: Melvin SALDANA narrative: The patient is a 60-year-old male with a history of hypertension, elevated cholesterol, and acid reflux. He presents to the emergency room saying that he has had several hours of chest pain and shortness of breath. He says that he has been taking antacids to see if it would help but it has not helped. He also says that he used cocaine last night. He says this was the first time that he used cocaine in his life. He snorted the cocaine. He seems to think that perhaps something that the cocaine ?was cut with might have irritated his stomach. No fever, sweats, chills. Related Data Home Medications ?Medication ?Instructions ?Recorded ?Confirmed calcium polycarbophil 625 mg 1,250 mg PO BID 08/06/20 07/14/25 tablet (Fiber Laxative (calcium polycarbophil)) Previous Rx's ?Medication ?Instructions ?Recorded ibuprofen 800 mg tablet 800 mg PO Q8H PRN pain #14 t abs 04/08/21 triamcinolone acetonide 0.1 % 1 appl topical BID 7 day s #30 grams 05/19/22 topical cream carbamide peroxide 6.5 % ear drops 5 drp otic (ears) B ID 7 days #15 mL 07/14/25 (Debrox) linaclotide 145 mcg capsule 145 mcg PO QAM 90 days #90 caps 07/14/25 (Linzess) lisinopril 5 mg tablet 5 mg PO DAILY #90 tabs 07/23 pantoprazole 40 mg tablet,delayed 40 mg PO DAILY 90 da ys #90 tabs 09/22/25 release Allergies Allergy/AdvReac Type Severity Reaction Status Date / Time penicillin G (PENICILLIN G) Allergy Unknown UNKNOWN Verified 10/06/25 16:44 penicillin V Allergy Unknown unknown Verified 10/06/25 16:44 Review of Systems 2 Review of Systems: Yes all other systems are reviewed and are negative [facility] Past Medical History Medical History (Updated 10/06/25 @ 21:19 by Miguel Charles MD) Essential hypertension Rash Pure hypercholesterolemia Elevated PSA Obesity (BMI 30-39.9) Exposure to COVID-19 virus Elevated blood pressure reading Urinary frequency Dry mouth Surgical History Hx of colonoscopy Family History Family History Father Overdose of drug Substance use disorder Mother HTN (hypertension) Anxiety Substance use disorder Mental health disorder Family/Other Prostate cancer Social History Social History Household Members: Family Household Members Other:: mother Housing: Apartment Alcohol intake: current Alcohol intake frequency: holidays/special occasions only Patient Tobacco Use Status: Never used Tobacco e-Cigarette/Vaping Use: Never Used Second Hand Smoke Exposure: Yes Substance Use Type: Marijuana service: No Current occupational status: disabled Cognitive needs: No Hearing needs: No Vision needs: No Physical Exam 2 Vital Signs: Vital Signs: Last Vital Signs Temp 97.9 F 10/06/25 21:43 Pulse 74 10/06/25 21:43 Resp 14 10/06/25 21:43 BP 144/97 H 10/06/25 21:43 Pulse Ox 98 10/06/25 21:43 O2 Del Method Room Air 10/06/25 21:43 BMI result Body Mass Index 32.5 Const: Other: The patient is awake and alert. He is a robust looking 60-year-old. He does not seem in acute distress. Orientation/consciousness: patient oriented x3 HEENT: Other: The face is symmetrical. ?Mucous membranes moist. Eyes: Other: Pupils are round equal, conjunctivae are clear, extraocular movements intact Neck: Neck: Yes normal visual inspection, Yes full ROM and Yes no JVD Resp: Effort & Inspection: normal respiratory effort Auscultation: clear to auscultation bilaterally Cardio: Rate: regular rate Rhythm: regular rhythm Heart sounds: S1 normal heart sound present and S2 normal heart sound present GI: Other: Abdomen is soft and nontender Skin: Other: The skin is dry and unremarkable Neuro: General: patient oriented x3, tone normal, no focal motor deficits and CN's II-XI intact bilaterally Extrem: Other: There is no calf swelling or tenderness. No asymmetry. No peripheral edema. Medications Administered Discontinued Medications Generic Name Dose Route Start Last Admin Trade Name Freq PRN Reason Stop Dose Admin Al Hydroxide/Mg Hydroxide 30 ml 10/06/25 21:15 10/06/25 21:43 Magnesium Hydrox/Alum Hydrox 30 Ml Oral.Susp PO 10/06/25 21:16 30 ml ONCE ONE Administration Iohexol 100 ml 10/06/25 20:06 10/06/25 20:08 Iohexol 350 Mg/Ml 100 Ml Infus..Btl IV 10/06/25 20:07 85 ml ONCE ONE Administration Sucralfate 1 gm 10/06/25 16:54 10/06/25 17:25 Sucralfate Oral Suspension 1 Gm/10 Ml Oral.Susp PO 10/06/25 16:55 1 gm ONCE ONE Administration Medical Decision Making Medical Decision Making [facility] Narrative: The patient is a 60-year-old male who comes to the emergency room complaining of chest pain and shortness of breath. He says the he used cocaine nasally last night for the 1st time in his life. His EKG is unremarkable. Chest x-ray was negative. He was mildly tachycardic and so in addition to running troponins I also ordered a D-dimer. The D-dimer was significantly elevated. I therefore ordered a CT pulmonary angiogram. This is negative. The patient's troponins are flat. The patient seemed to feel better with observation. Whether this was because he was given sucralfate or not is not clear. He is on pantoprazole already. He is advised to refrain from cocaine use in the future. Lab Data 10/06/25 17:31 10/06/25 17:31 Labs: Lab Results 10/06/25 10/06/25 Range/Units 17:31 20:52 WBC 6.7 (4.8-10.8) X10*3/uL RBC 5.82 H (4.60-5.80) X10*6/uL Hgb 16.3 (14.0-18.0) g/dl Hct 47.9 (42.0-52.0) % MCV 82.3 (80.0-98.0) fL MCH 28.0 (27.0-33.0) pg MCHC 34.0 (31.0-36.0) g/dl RDW 13.8 (11.0-16.0) % Plt Count 303 (160-400) X10*3/uL MPV 9.3 L (9.4-12.4) fL Immature Gran % (Auto) 0.7 H (0.0-0.4) % Neut % (Auto) 64.4 (45-73) % Lymph % (Auto) 21.7 (20-40) % [place] % (Auto) 11.5 H (2-11) % Eos % (Auto) 1.0 (0-4) % Baso % (Auto) 0.7 (0-2) % Lymph # (Auto) 1.5 (1.2-4.9) X10*3/uL [place] # (Auto) 0.8 (0.1-1.2) X10*3/uL Eos # (Auto) 0.1 (0.0-0.4) X10*3/uL Baso # (Auto) 0.1 (0.0-0.2) X10*3/uL Abs Immat Gran (auto) 0.05 H (0.00-0.03) X10*3/uL Absolute Neuts (auto) 4.3 (2.0-8.3) x10*3/uL Absolute Nucleated RBC 0.000 (0.0-0.012) X10*3/uL Nucleated RBC % (auto) 0.0 (0.0-0.2) /100WBC D-Dimer High Sensitivty 1747 NG/ML Sodium 138 (135-145) mmol/L Potassium 3.3 (3.3-5.1) mmol/L Chloride 106 (96-108) mmol/L Carbon Dioxide 22 (22-29) mmol/L Anion Gap 13 (12-20) BUN 9 (9-16) mg/dL Creatinine 1.06 (0.5-1.4) mg/dL Estim Creat Clear Calc 102.5 Estimated GFR > 60 Random Glucose 110 (60-115) mg/dL Calcium 9.3 (8.4-10.2) mg/dL Total Bilirubin 1.3 H (0.0-1.0) mg/dL Direct Bilirubin 0.4 (0.0-0.5) mg/dL AST 49 H (5-37) U/L ALT 55 H (0-40) U/L Alkaline Phosphatase 88 (39-117) U/L Total Creatine Kinase 558 H (38-174) U/L Troponin I High Sens 13.0 14.8 (<3.5-35.0) ng/L Total Protein 7.8 (6.5-8.0) g/dL Albumin 4.6 (3.5-5.0) g/dL Ethyl Alcohol < 10 mg/dL Influenza Type A (PCR) NEGATIVE (Negative) Influenza Type B (PCR) NEGATIVE (Negative) RSV RNA Qual (PCR) NEGATIVE (Negative) SARS-CoV-2 RNA (RT-PCR) NEGATIVE (Negative) Independent Interpretation I performed an independent interpretation of an: EKG Interpretation: EKG at 1623 shows normal sinus rhythm at 99 beats per minute. No definite acute ischemic changes. Discharge Plan Discharge Clinical Impression: Chest pain, Cocaine use Patient Disposition: Home, Self-Care Additional Instructions: Your testing in the emergency room today is very reassuring. There was no sign of a heart attack or a blood clot in your lungs are any other dangerous process. Please avoid cocaine use in the future. Please follow up soon with your regular doctor to discuss this further. Please take the pantoprazole you has been previously prescribed. Return to the emergency room if significantly worse. Prescriptions: No Action triamcinolone acetonide 0.1 % cream 1 appl topical BID 7 Days Qty: 30 1RF lisinopril 5 mg tablet 5 mg PO DAILY Qty: 90 1RF pantoprazole 40 mg tablet,delayed release (DR/EC) 40 mg PO DAILY 90 Days Qty: 90 1RF ibuprofen 800 mg tablet 800 mg PO Q8H PRN (Reason: pain) Qty: 14 0RF calcium polycarbophil [Fiber Laxative (ca polycarbo)] 625 mg tablet 1,250 mg PO BID Linzess 145 mcg capsule 145 mcg PO QAM 90 Days Qty: 90 1RF Debrox 6.5 % drops 5 drp otic (ears) BID 7 Days Qty: 15 0RF Referrals: Tee Sexton MD [Physician, Internal Medicine] Interventions: ED Discharge Assessment Last Done: 10/06/25 21:43 Discharge Date/Time: 10/06/25 21:44 Print Language: Upper Sorbian
[2025-10-06] MEDS: Sucralfate Oral Suspension 1 GM/10 ML ORAL.SUSP PO (17:25)
[2025-10-06 17:36] LABS: MANUAL DIFF FLAG NO
[2025-10-06 17:42] LABS: Hematocrit 47.9 % (42.0-52.0); Hemoglobin 16.3 g/dl (14.0-18.0); Imm Gran Abs Auto 0.05 X10*3/uL (0.00-0.03); Imm Gran Pct Auto 0.7 % (0.0-0.4); Lymphocytes Absolute Auto 1.5 X10*3/uL (1.2-4.9); Mean Corpuscular HGB Conc 34.0 g/dl (31.0-36.0); Mean Corpuscular Hemoglobin 28.0 pg (27.0-33.0); Mean Corpuscular Volume 82.3 fL (80.0-98.0); NRBC Abs Auto 0.000 X10*3/uL (0.0-0.012); NRBC Pct Auto 0.0 /100WBC (0.0-0.2); Platelet Count 303 X10*3/uL (160-400); Red Blood Count 5.82 X10*6/uL (4.60-5.80); White Blood Count 6.7 X10*3/uL (4.8-10.8)
[2025-10-06 17:49] LABS: D Dimer High Sensitivity 1747 NG/ML
[2025-10-06 17:53] LABS: Alanine Aminotransferase 55 U/L (0-40); Albumin Level 4.6 g/dL (3.5-5.0); Alkaline Phosphatase 88 U/L (39-117); Anion Gap 13 (12-20); Aspartate Amino Transferase 49 U/L (5-37); Blood Urea Nitrogen 9 mg/dL (9-16); Calcium 9.3 mg/dL (8.4-10.2); Carbon Dioxide 22 mmol/L (22-29); Chloride 106 mmol/L (96-108); Creatinine Clr Calc Pharmacy 102.5; Estimated Glomerular Filt Rate > 60; Potassium 3.3 mmol/L (3.3-5.1); Sodium 138 mmol/L (135-145); Total Protein 7.8 g/dL (6.5-8.0)
[2025-10-06 17:56] LABS: Troponin-I High Sensitivity 13.0 ng/L (<3.5-35.0)
[2025-10-06 18:18] LABS: Resp Syncy Virus RNA Qual PCR NEGATIVE (Negative); SARS COV2 PCR INHOUSE NEGATIVE (Negative)
--- OUTSIDE RECORDS SUMMARY | 2025-10-06 19:08 | XMS_ITS | Clinical Summary ---
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
[2025-10-06] MEDS: iohexoL 350 MG/ML 100 ML INFUS..BTL IV (20:08)
[2025-10-06 20:47] VITALS: BP 144/97; PULSE 74; RESP 14; TEMP 36.6; O2SAT 98
[2025-10-06 21:16] LABS: Troponin-I High Sensitivity 14.8 ng/L (<3.5-35.0)
[2025-10-06 21:43] VITALS: BP 144/97; PULSE 74; RESP 14; TEMP 36.6; O2SAT 98
[2025-10-06] MEDS: Magnesium Hydrox/Alum Hydrox 30 ML ORAL.SUSP PO (21:43)
== END 2025-10-06 21:44 | disposition home or self-care (01) ==
PROVIDERS: Emergency Provider Emergency Medicine
DX: R07.9 Chest pain, unspecified (principal); F14.90 Cocaine use, unspecified, uncomplicated; R06.02 Shortness of breath; I10 Essential (primary) hypertension; E78.00 Pure hypercholesterolemia, unspecified; Z79.899 Other long term (current) drug therapy; Z03.818 Encounter for observation for suspected exposure to other biological agents ruled out
CPT/HCPCS: 36415; 71046; 71275; 80048; 80076; 80307; 82550; 84484; 85025; 85379; 87637; 93005; 99284; 99285; Q9967

== ENCOUNTER → 2025-10-06 16:14 | Outpatient (BNV) | payer OTHER, SELFPAY | PROVIDERS: Emergency Provider Emergency Medicine; Visit Provider Internal Medicine | DX: I44.4 Left anterior fascicular block (principal) | CPT/HCPCS: 93010 ==

== ENCOUNTER → 2025-10-06 16:53 | Outpatient (BNV) | payer OTHER, SELFPAY | PROVIDERS: Emergency Provider Emergency Medicine; Visit Provider Radiology Diagnostic Radiology | DX: R07.9 Chest pain, unspecified (principal); R06.02 Shortness of breath; R79.1 Abnormal coagulation profile | CPT/HCPCS: 71046; 71275 ==